=== PATIENT | male | born 1990 | race Caucasian/White ===

== ENCOUNTER 2018-02-10 11:48 | Emergency (ER) | payer MEDICAID ==
[~2018-02-10] VITALS: Ht 177.8 cm; Wt 120.0 kg
[2018-02-10] MEDS ORDERED: KETOROLAC 15MG/ML VIAL IV ONE (12:30)
[2018-02-10 13:22] VITALS: BP 128/71
== END 2018-02-10 13:27 | disposition home or self-care (01) ==
LOC: ER 11:48
DX: R07.89 Other chest pain (principal); F41.9 Anxiety disorder, unspecified; M25.512 Pain in left shoulder
CPT/HCPCS: 71045; 93005; 99284; J1885